=== PATIENT | male | born 1975 ===

== ENCOUNTER 2023-09-27 04:16 | Day surgery (SDC) | payer BC ==
[2023-09-24 15:51] VITALS: BMI 31.3
[2023-09-27] MEDS ORDERED: BUPIVACAINE HCL/PF 0.5% (5MG/ML) 10 ML VIAL ONE (07:14)
[2023-09-27] MEDS ORDERED: LIDOCAINE HCL 1%, 10 MG/ML (20ML VIAL) ONE (07:14)
[2023-09-27] MEDS ORDERED: VANCOMYCIN 1,000 MG VIAL (RESTRICTED TO ID ONLY) ONE (07:15)
[2023-09-27] MEDS ORDERED: GENTAMICIN SO4 80 MG/2 ML VIAL ONE (07:15)
[2023-09-27] MEDS ORDERED: PROPOFOL 40 ML ONE (07:30)
[2023-09-27] MEDS ORDERED: MIDAZOLAM HCL 2 MG/2 ML SINGLE DOSE VIAL ONE (07:30)
[2023-09-27] MEDS: GENTAMICIN SO4 80 MG/2 ML VIAL IVPB ONE (07:58)
[2023-09-27] MEDS: LIDOCAINE HCL 1%, 10 MG/ML (20ML VIAL) INF ONE (07:58)
[2023-09-27] MEDS: ceFAZolin SODIUM 1 GM VIAL IVPB ONE (08:02)
[2023-09-27] MEDS: BUPIVACAINE HCL/PF 0.5% (5MG/ML) 10 ML VIAL IJ ONE ×2 (08:42→09:56)
[2023-09-27] MEDS ORDERED: PROPOFOL 20 ML ONE (09:40)
[2023-09-27] MEDS ORDERED: oxyCODONE HCL 5 MG TABLET PO PRN (10:25)
[2023-09-27] MEDS ORDERED: PROMETHAZINE HCL 25 MG/1 ML VIAL IVPB PRN (10:25)
[2023-09-27] MEDS ORDERED: ONDANSETRON 4 MG/2 ML VIAL IVPUSH PRN (10:25)
[2023-09-27] MEDS ORDERED: LACTATED RINGERS SOLUTION 1,000 ML IV SCH (10:30)
[2023-09-27 13:06] VITALS: RESP 18
[2023-09-27 14:05] VITALS: BP 124/76; PULSE 60; TEMP 97.5
== END 2023-09-27 14:45 | disposition home or self-care (01) ==
LOC: JASU-SURG 04:16
PROVIDERS: ATTEND Podiatrist Foot Surgery
PROC: 0SGM07Z Fusion of Right Metatarsal-Phalangeal Joint with Autologous Tissue Substitute, Open Approach (ICD-10-PCS; principal; 2023-09-27 07:30)
DX: M19.071 Primary osteoarthritis, right ankle and foot (principal)
CPT/HCPCS: 73630-TC-RT-FY; 76000-TC-FY; 88304-TC; 88311-TC; 94760; 97116-GP; C1713; C1889